=== PATIENT | female | born 1970 | race Caucasian/White ===

== ENCOUNTER 2016-08-27 15:00 | Emergency (ER) | payer OTHER ==
[~2016-08-27] VITALS: Ht 157.5 cm; Wt 50.0 kg
[~2016-08-27 15:00] MED LIST: ARIP20 PO; LITH300 PO; PROZ20CA11 PO; VIST25CA PO
[2016-08-27 15:02] VITALS: BP 121/70; PULSE 82; RESP 14; TEMP 98.2; O2SAT 96
[2016-08-27] MEDS ORDERED: ZYPR2.5T2 PO (16:33)
[2016-08-27] MEDS ORDERED: TRIL150T PO (16:33)
[2016-08-27] MEDS ORDERED: GABA100C4 PO (16:33)
[2016-08-27] MEDS ORDERED: NAPR500T PO (16:56)
[2016-08-27] MEDS ORDERED: CYCL1TAB29 PO (16:56)
--- NOTE | 2016-08-27 16:57 | PD ---
HPI Chief Complaint: Back/ Neck Pain or Injury Time Seen by Provider: 16:56 Travel History International Travel<30 days: No Contact w/Intl Traveler<30days: No Traveled to known affect area: No History of Present Illness HPI 45-year-old female presents to the emergency department for evaluation of lower back pain for one week. Denies any injury or trauma to her back. States that she has had lower back pain in the past. States that her pain is worse than it has previously been which is what prompted her to come to the emergency department. States that the pain is constant and aggravated with movement and standing. States that it does radiate down to her left thigh. She took some friend's Percocet which did improve the symptoms minimally. She denies any fever, chills, nausea, vomiting, numbness or tingling, weakness, saddle anesthesia, bowel or bladder incontinence. Denies any history of IV drug use. No other complaints. PFSH Past Medical History Anxiety: Yes Depression: Yes Diminished Hearing: No ?: Not : 4 Para: 3 Tubal Ligation: Yes Past Surgical History Appendectomy: Yes Section: Yes Gynecologic Surgery: Yes (tumor removed from ovary and tube.pt unable to recall correct side.) Hysterectomy: Yes Social History Alcohol Use: Yes (OCCASIONALLY) Tobacco Use: Yes (1/2 PPD) Substance Use: No Allergies-Medications (Allergen,Severity, Reaction): Coded Allergies: Codeine (Verified Allergy, Severe, itch,hives, 04/12/14) Reported Meds & Prescriptions Reported Meds & Active Scripts Active Naproxen 500 Mg Tab 500 Mg PO BID 7 Days Flexeril (Cyclobenzaprine HCl) 10 Mg Tab 10 Mg PO TID 5 Days Reported Trileptal (Oxcarbazepine) 150 Mg Tab 150 Mg PO BID Gabapentin 100 Mg Cap 100 Mg PO BID Zyprexa (Olanzapine) 2.5 Mg Tab 2.5 Mg PO DAILY Review of Systems Except as stated in HPI: all other systems reviewed are Neg Physical Exam Narrative GENERAL: Well-nourished and well-developed pleasant female patient in no acute distress. SKIN: Warm and dry. HEAD: Normocephalic and atraumatic. EYES: No injection, drainage, or hyphema noted. PERRLA. EOMI. ENT: No nasal drainage noted. Oropharynx is clear. NECK: Supple and the trachea is midline. CARDIOVASCULAR: Regular rate and rhythm. RESPIRATORY: Breath sounds are equal bilaterally with no accessory muscle use, wheezing, rhonchi, or crackles. MUSCULOSKELETAL: No obvious deformities, swelling, cyanosis, or ecchymosis is present throughout the upper and lower extremities. Patient has full range of motion without any signs of neurovascular compromise. Strength 5/5 upper and lower extremities equal bilaterally. Left SLR positive. BACK: Muscle tension noted to the lumbar paraspinous muscles with tenderness to palpation. No obvious deformities, midline bony point tenderness, or crepitus noted throughout the thoracic and lumbar vertebrae. NEUROLOGICAL: Awake, alert, and oriented. Normal speech and gait. Cranial nerves are grossly intact. Data Data Last Documented VS Vital Signs Date Time Temp Pulse Resp B/P Pulse Ox O2 Delivery O2 Flow Rate FiO2 08/27/16 15:02 98.2 82 14 121/70 96 Room Air Orders Ketorolac Inj (Toradol Inj) (08/27/16 17:00) Acetamin-Hydrocod 325-5 Mg ([place] 5-325 (08/27/16 17:00) MDM Medical Decision Making Medical Screen Exam Complete: Yes Emergency Medical Condition: Yes Differential Diagnosis Muscle strain versus muscle spasm versus discogenic pain versus herniated disc Narrative Course 45-year-old female presents to the emergency department for evaluation of lower back pain radiating to the left thigh. Patient is afebrile, vital signs are stable. No focal neurologic deficits. No midline bony point tenderness. No traumatic injury. No red flag signs or symptoms. Patient has had low back pain in the past. This is an acute exacerbation of chronic low back pain. She is given Toradol 60 mg IM and Lortab 5325 mg orally here in the ED. She'll be discharged with naproxen and Flexeril. Instructed to follow-up with a PCP. Patient verbalizes understanding and is in agreement with treatment plan. Diagnosis Primary Impression: Acute exacerbation of chronic low back pain Referrals: Primary Care Physician Patient Instructions: Acute Low Back Pain (ED), General Instructions Departure Forms: Tests/Procedures, Work Release Enter return to work date: Aug 30, 2016 Additional Instructions: Apply ice or heat to help alleviate symptoms. Take medications as prescribed with food and a full glass of water. Do not take Flexeril with alcohol or while driving. Follow-up with your Primary Care Physician. Return to the ED for any acute worsening of symptoms. Med/Other Pt SpecificInfo: Prescription(s) given Scripts Naproxen 500 Mg [id number] Mg PO BID 7 Days Ref 0 Prov:Vinnie Quinteros MD 08/27/16 Cyclobenzaprine (Flexeril)10 Mg Tab10 Mg PO TID 5 Days Ref 0 Prov:Vinnie Quinteros MD 08/27/16 Disposition: 01 DISCHARGE HOME Condition: Stable Brittany Lazaro Aug 27, 2016 16:57
[2016-08-27] MEDS ORDERED: ACETAMINOPHEN/HYDROcodone 325 MG/5 MG TAB PO ONE (17:00)
[2016-08-27] MEDS ORDERED: KETOROLAC TROMETHAMINE 60 MG/2 ML (IM) VIAL IM ONE (17:00)
== END 2016-08-27 17:32 | disposition home or self-care (01) ==
LOC: NEPB 15:00
DX: M54.5 Low back pain (principal); G89.29 Other chronic pain; F17.210 Nicotine dependence, cigarettes, uncomplicated
CPT/HCPCS: 96372; 99283; J1885

== ENCOUNTER 2017-07-05 15:41 | Emergency (ER) | payer SELFPAY ==
[~2017-07-05] VITALS: Ht 152.4 cm; Wt 50.0 kg
[~2017-07-05 15:41] MED LIST changes: -ARIP20 PO; +CYCL10TA PO; +GABA100C4 PO; -LITH300 PO; +NAPR500T2 PO; -PROZ20CA11 PO; +TRIL150T PO; -VIST25CA PO; +ZYPR2.5T2 PO
[2017-07-05 15:44] VITALS: BP 137/98; PULSE 89; RESP 22; TEMP 98.7; O2SAT 93
[2017-07-05] MEDS: RESP: ALBUTEROL 2.5 MG/IPRATROPIUM 0.5 MG NEB (SCH) INH ×3 (16:15→16:37)
[2017-07-05] MEDS ORDERED: methylPREDNISolone SOD SUCC 125 MG/2 ML VIAL IV PUSH ONE (16:15)
[2017-07-05] MEDS ORDERED: HYDROcodone 5 MG/HOMATROPINE 1.5 MG SYRUP 5 ML CUP PO ONE (16:15)
[2017-07-05] MEDS ORDERED: SODIUM CHLORIDE 0.9% FLUSH 10 ML FLUSH IVF PRN (16:15)
[2017-07-05 16:37] VITALS: BP 124/74; PULSE 87; RESP 21; TEMP 98.1
--- NOTE | 2017-07-05 16:43 | RADRPT ---
EXAM DATE/TIME: 07/05/2017 16:33 [facility] COMPARISON: No previous studies available for comparison. INDICATIONS : Wheezing. Short of breath. MEDICAL HISTORY : None. SURGICAL HISTORY : None. ENCOUNTER: Initial ACUITY: 1 day PAIN SCORE: 6/10 LOCATION: Bilateral chest FINDINGS: A single view of the chest demonstrates the lungs to be symmetrically aerated without evidence of mas s, infiltrate or effusion. The cardiomediastinal contours are unremarkable. Osseous structures are intact. CONCLUSION: 1. No acute cardiopulmonary disease. Isaias Morales MD on July 05, 2017 at 16:41 Board Certified Radiologist. This report was verified electronically.
--- NOTE | 2017-07-05 17:09 | PD ---
HPI Chief Complaint: Respiratory Distress Time Seen by Provider: 16:02 Travel History International Travel<30 days: No Contact w/Intl Traveler<30days: No Traveled to known affect area: No History of Present Illness HPI Patient is a 46-year-old female presenting to emergency department for evaluation of cough, chest congestion, shortness of breath. Patient states her symptoms have been ongoing for 1 week, she reports the max temp of 101 on Thursday , none since that time. Her cough is nonproductive, she also reports nasal congestion. She denies any nausea, vomiting, abdominal pain, chest pain, headache. Patient continues to smoke cigarettes. She has a history of bipolar disorder, anxiety, neuropathy. PFSH Past Medical History Bipolar Disorder: Yes Anxiety: Yes Depression: Yes Diminished Hearing: No ?: Not : 4 Para: 3 Tubal Ligation: Yes Past Surgical History Appendectomy: Yes Section: Yes Gynecologic Surgery: Yes (tumor removed from ovary and tube.pt unable to recall correct side.) Hysterectomy: Yes Social History Alcohol Use: Yes (OCCASIONALLY) Tobacco Use: Yes (1/2 PPD) Substance Use: No Allergies-Medications (Allergen,Severity, Reaction): Coded Allergies: codeine (Unverified Allergy, Severe, itch,hives, 07/05/17) Reported Meds & Prescriptions Reported Meds & Active Scripts Active Naproxen 500 Mg Tab 500 Mg PO BID 7 Days Flexeril (Cyclobenzaprine HCl) 10 Mg Tab 10 Mg PO TID 5 Days Reported Trileptal (Oxcarbazepine) 150 Mg Tab 150 Mg PO BID Gabapentin 100 Mg Cap 100 Mg PO BID Zyprexa (Olanzapine) 2.5 Mg Tab 2.5 Mg PO DAILY Review of Systems Except as stated in HPI: all other systems reviewed are Neg General / Constitutional: Positive: Fever, No: Chills HENT: No: Headaches, Lightheadedness Cardiovascular: No: Chest Pain or Discomfort Respiratory: Positive: Cough, Shortness of Breath, Wheezing, Pleuritic Pain Gastrointestinal: No: Nausea, Vomiting, Diarrhea, Abdominal Pain Musculoskeletal: No: Myalgias Neurologic: No: Weakness, Dizziness, Syncope, Focal Abnormalities Physical Exam Narrative GENERAL: Well-developed, well-nourished, alert female. Resting comfortably in no acute distress. SKIN: Warm and dry. HEAD: Atraumatic. Normocephalic. EYES: Pupils equal and round. No scleral icterus. No injection or drainage. ENT: No nasal bleeding or discharge. Mucous membranes pink and moist. Her pharynx APPEARANCE. NECK: Trachea midline. No JVD. CARDIOVASCULAR: Regular rate and rhythm. RESPIRATORY: No accessory muscle use. Expiratory wheezing throughout. GASTROINTESTINAL: Abdomen soft, non-tender, nondistended. Hepatic and splenic margins not palpable. MUSCULOSKELETAL: Extremities without clubbing, cyanosis, or edema. No obvious deformities. NEUROLOGICAL: Awake and alert. No obvious cranial nerve deficits. Motor grossly within normal limits. Five out of 5 muscle strength in the arms and legs. Normal speech. PSYCHIATRIC: Appropriate mood and affect; insight and judgment normal. Data Data Last Documented VS Vital Signs Date Time Temp Pulse Resp B/P (MAP) Pulse Ox O2 Delivery O2 Flow Rate FiO2 07/05/17 17:58 97 Room Air 07/05/17 16:37 98.1 87 21 124/74 (91) 07/05/17 16:18 2.00 Orders Orders Complete Blood Count With Diff (07/05/17 16:10) Comprehensive Metabolic Panel (07/05/17 16:10) Chest, Single Ap (07/05/17 16:10) Ecg Monitoring (07/05/17 16:10) Iv Access Insert/Monitor (07/05/17 16:10) Oximetry (07/05/17 16:10) Oxygen Administration (07/05/17 16:10) Methylprednisolone So Succ Inj (Solumedr (07/05/17 16:15) Albuterol-Ipratropium Neb (Duoneb Neb) (07/05/17 16:15) Sodium Chloride 0.9% Flush (Ns Flush) (07/05/17 16:15) Hydrocodone-Homatropine Liq (Hycodan Liq (07/05/17 16:15) Labs Laboratory Tests Test 07/05/17 16:25 White Blood Count 8.4 TH/MM3 Red Blood Count 4.59 MIL/MM3 Hemoglobin 15.5 GM/DL Hematocrit 45.2 % Mean Corpuscular Volume 98.5 FL Mean Corpuscular Hemoglobin 33.8 PG Mean Corpuscular Hemoglobin Concent 34.3 % Red Cell Distribution Width 14.3 % Platelet Count 318 TH/MM3 Mean Platelet Volume 8.4 FL Neutrophils (%) (Auto) 57.7 % Lymphocytes (%) (Auto) 27.1 % Monocytes (%) (Auto) 6.7 % Eosinophils (%) (Auto) 7.6 % Basophils (%) (Auto) 0.9 % Neutrophils # (Auto) 4.9 TH/MM3 Lymphocytes # (Auto) 2.3 TH/MM3 Monocytes # (Auto) 0.6 TH/MM3 Eosinophils # (Auto) 0.6 TH/MM3 Basophils # (Auto) 0.1 TH/MM3 CBC Comment DIFF FINAL Differential Comment Blood Urea Nitrogen 6 MG/DL Creatinine 0.77 MG/DL Random Glucose 93 MG/DL Total Protein 7.3 GM/DL Albumin 3.4 GM/DL Calcium Level 8.8 MG/DL Alkaline Phosphatase 133 U/L Aspartate Amino Transf (AST/SGOT) 20 U/L Alanine Aminotransferase (ALT/SGPT) 15 U/L Total Bilirubin 0.4 MG/DL Sodium Level 142 MEQ/L Potassium Level 3.8 MEQ/L Chloride Level 108 MEQ/L Carbon Dioxide Level 27.1 MEQ/L Anion Gap 7 MEQ/L Estimat Glomerular Filtration Rate 80 ML/MIN MDM Medical Decision Making Medical Screen Exam Complete: Yes Emergency Medical Condition: Yes Interpretation(s) Laboratory Tests Test 07/05/17 16:25 White Blood Count 8.4 TH/MM3 Red Blood Count 4.59 MIL/MM3 Hemoglobin 15.5 GM/DL Hematocrit 45.2 % Mean Corpuscular Volume 98.5 FL Mean Corpuscular Hemoglobin 33.8 PG Mean Corpuscular Hemoglobin Concent 34.3 % Red Cell Distribution Width 14.3 % Platelet Count 318 TH/MM3 Mean Platelet Volume 8.4 FL Neutrophils (%) (Auto) 57.7 % Lymphocytes (%) (Auto) 27.1 % Monocytes (%) (Auto) 6.7 % Eosinophils (%) (Auto) 7.6 % Basophils (%) (Auto) 0.9 % Neutrophils # (Auto) 4.9 TH/MM3 Lymphocytes # (Auto) 2.3 TH/MM3 Monocytes # (Auto) 0.6 TH/MM3 Eosinophils # (Auto) 0.6 TH/MM3 Basophils # (Auto) 0.1 TH/MM3 CBC Comment DIFF FINAL Differential Comment Blood Urea Nitrogen 6 MG/DL Creatinine 0.77 MG/DL Random Glucose 93 MG/DL Total Protein 7.3 GM/DL Albumin 3.4 GM/DL Calcium Level 8.8 MG/DL Alkaline Phosphatase 133 U/L Aspartate Amino Transf (AST/SGOT) 20 U/L Alanine Aminotransferase (ALT/SGPT) 15 U/L Total Bilirubin 0.4 MG/DL Sodium Level 142 MEQ/L Potassium Level 3.8 MEQ/L Chloride Level 108 MEQ/L Carbon Dioxide Level 27.1 MEQ/L Anion Gap 7 MEQ/L Estimat Glomerular Filtration Rate 80 ML/MIN Vital Signs Date Time Temp Pulse Resp B/P (MAP) Pulse Ox O2 Delivery O2 Flow Rate FiO2 07/05/17 16:37 98.1 87 21 124/74 (91) 07/05/17 16:18 (111) Nasal Cannula 2.00 07/05/17 16:18 98 Nasal Cannula 2.00 07/05/17 16:07 96 Nasal Cannula 2.00 07/05/17 16:03 26 94 Room Air 07/05/17 15:44 98.7 89 22 137/98 (111) 93 Room Air Last Impressions Chest X-Ray 07/05/17 1610 Signed Impressions: Service Date/Time: Wednesday, July 05, 2017 16:33 - CONCLUSION: 1. No acute cardiopulmonary disease. Isaias Morales MD Vital Signs Date Time Temp Pulse Resp B/P (MAP) Pulse Ox O2 Delivery O2 Flow Rate FiO2 07/05/17 16:37 98.1 87 21 124/74 (91) 07/05/17 16:18 (111) Nasal Cannula 2.00 07/05/17 16:18 98 Nasal Cannula 2.00 07/05/17 16:07 96 Nasal Cannula 2.00 07/05/17 16:03 26 94 Room Air 07/05/17 15:44 98.7 89 22 137/98 (111) 93 Room Air Differential Diagnosis Orchitis versus pneumonia versus COPD exacerbation versus viral URI versus other Narrative Course Patient is a 46-year-old female presenting for evaluation of upper respiratory symptoms that been ongoing for 1 week. Patient's initial vital signs showed a pulse ox of 93 on room air. Patient was put on 2 L of oxygen and her oxygen saturation rebounded to 97%. Labs and imaging ordered and pending. Patient continues to use tobacco smoke, her and her mother smoked in the home. Patient has likely underlying undiagnosed COPD. Chest x-ray which is read by the radiologist shows no acute disease. CBC and CMP reviewed, no acute findings identified. Patient was given DuoNeb 3 as well Solu-Medrol IV. Patient was reevaluated, she reports a significant improvement in her symptoms. Patient was taken off of oxygen, her oxygen saturation remains at 97%. Patient is requesting to be discharged home. She was advised to avoid smoking in her home, she was encouraged to utilize albuterol nebulizers as needed. She'll be provided with a prescription for antibiotic as well as oral steroids. She was encouraged to return to emergency department for any new or worsening symptoms. Additionally patient will be given information regarding the is a clinic to establish primary care. Patient verbalized understanding of instructions. Patient is stable for discharge. Diagnosis Primary Impression: Acute bronchitis Qualified Codes: J20.9 - Acute bronchitis, unspecified Referrals: [facility] 1 week Patient Instructions: Acute Bronchitis (ED), COPD (Chronic Obstructive Pulmonary Disease) (ED), Cigarette Smoking and Your Health (GEN), General Instructions, How to Stop Smoking (ED), Moderate Sedation in Children (ED) Additional Instructions: Follow-up with a primary doctor or at [facility] Use albuterol as needed and as directed Complete full course of antibiotics as prescribed Return to emergency department for any new or worsening symptoms Avoid tobacco use in your home Med/Other Pt SpecificInfo: Prescription(s) given Scripts Hydrocodone W/ Homatropine (Hydrocodone/Homatropine 5-1.5 mg/5Ml) 5 Mg-1.5 Mg/5 Ml Syp 5 ML PO Q6HR Y for COUGH, #100 ML Prov: Sue Tipton 07/05/17 Albuterol Neb (Albuterol Neb) 2.5 Mg/3 Ml Neb 2.5 MG NEB Q4HR NEB Y for SHORTNESS OF BREATH, #60 NEBULE 0 Refills Prov: Sue Tipton 07/05/17 Azithromycin (Azithromycin) 250 Mg Tab 250 MG PO DAILY for Infection, #4 TAB 0 Refills Prov: Sue Tipton 07/05/17 Prednisone (Prednisone) 50 Mg Tab 50 MG PO DAILY for 5 Days, #5 TAB 0 Refills Prov: Sue Tipton 07/05/17 Disposition: 01 DISCHARGE HOME Condition: Stable Sue Tipton Jul 05, 2017 17:09
[2017-07-05 17:33] LABS: AUTOMATED NEUTROPHIL # 4.9 TH/MM3 (1.8-7.7); BASOPHIL # 0.1 TH/MM3 (0-0.2); BASOPHIL % 0.9 % (0.0-2.0); EOSINOPHIL # 0.6 TH/MM3 (0-0.4); EOSINOPHIL % 7.6 % (0.0-4.0); HEMATOCRIT 45.2 % (35.0-46.0); HEMO FLAGS DIFF FINAL; LYMPH % 27.1 % (9.0-44.0); LYMPHOCYTE # 2.3 TH/MM3 (1.0-4.8); MEAN CELL VOLUME 98.5 FL (80.0-100.0); MEAN CORPUSCULAR HEMOGLOBIN 33.8 PG (27.0-34.0); MEAN CORPUSCULAR HGB CONC 34.3 % (32.0-36.0); MONO % 6.7 % (0.0-8.0); NEUT % 57.7 % (16.0-70.0); PLATELET COUNT 318 TH/MM3 (150-450); RED BLOOD COUNT 4.59 MIL/MM3 (4.00-5.30); RED CELL DISTRIBUTION WIDTH 14.3 % (11.6-17.2); WHITE BLOOD COUNT 8.4 TH/MM3 (4.0-11.0)
[2017-07-05 17:48] LABS: ALT (GPT) 15 U/L (10-53); ANION GAP 7 MEQ/L (5-15); AST (GOT) 20 U/L (15-37); BICARBONATE 27.1 MEQ/L (21.0-32.0); BLOOD UREA NITROGEN 6 MG/DL (7-18); CHLORIDE 108 MEQ/L (98-107); GLOMERULAR FILTRATION RATE 80 ML/MIN (>89); POTASSIUM 3.8 MEQ/L (3.5-5.1); SODIUM (NA) 142 MEQ/L (136-145)
[2017-07-05 17:51] LABS: ALKALINE PHOSPHATASE 133 U/L (45-117); TOTAL BILIRUBIN ADULT 0.4 MG/DL (0.2-1.0)
[2017-07-05] MEDS ORDERED: HYDR5SYP10 PO (18:08)
[2017-07-05] MEDS ORDERED: AZIT250T3 PO (18:08)
[2017-07-05] MEDS ORDERED: ALBU0.08 NEB (18:08)
[2017-07-05] MEDS ORDERED: PRED50 PO (18:08)
[2017-07-05] MEDS ORDERED: AZITHROMYCIN 250 MG TAB PO ONE (18:15)
== END 2017-07-05 18:20 | disposition home or self-care (01) ==
LOC: NEPE 15:41
DX: J20.9 Acute bronchitis, unspecified (principal); F31.9 Bipolar disorder, unspecified; G62.9 Polyneuropathy, unspecified; F41.9 Anxiety disorder, unspecified; F17.210 Nicotine dependence, cigarettes, uncomplicated; Z79.899 Other long term (current) drug therapy; Z88.5 Allergy status to narcotic agent
CPT/HCPCS: 71010; 80053; 85025; 94664; 96374; 99284; J2930